=== PATIENT | female | born 2000 | race African-American/Black ===

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

== ENCOUNTER 2021-01-06 17:50 | Emergency (ER) | payer MEDICAID, OTHER ==
[~2021-01-06 17:50] MED LIST: Sodium Chloride 0.9% 1,000 ML BAG ONE
[2021-01-06] MEDS ORDERED: Metoclopramide HCl 10 MG/2 ML VIAL ONE (18:29)
[2021-01-06] MEDS ORDERED: Pantoprazole 40 MG VIAL ONE (18:29)
[2021-01-06] MEDS ORDERED: Ketorolac Tromethamine 30 MG/ML VIAL ONE (18:29)
[2021-01-06 18:44] LABS: #Basophils 0.1 thou/uL (0.0-0.2); #Monocytes 0.5 thou/uL (0.11-0.59); #Neutrophils 6.7 thou/uL (1.40-6.50); %Basophils 0.8 % (0.0-1.0); %Eosinophils 0.1 % (0.0-10.0); %Lymphocytes 21.5 % (28.0-48.0); %Monocytes 5.4 % (0.0-4.0); %Neutrophils 72.2 % (31.0-61.0); Hemoglobin 14.8 g/dL (12.0-16.0); Mean Corpuscular HGB CONC 33.8 g/dL (32.0-36.0); Mean Corpuscular Hemoglobin 30.6 pg (25.0-35.0); Mean Corpuscular Volume 90.7 fL (78.0-98.0); Mean Platelet Volume 8.3 fL (7.4-10.4); Platelet Count 412 thou/uL (130-400); RBC Distribution Width 10.2 % (11.5-14.5); Red Blood Cell (RBC) Count 4.84 mill/uL (4.00-5.20); White Blood Cell (WBC) Count 9.3 thou/uL (4.8-10.8)
[2021-01-06 18:53] LABS: BHCG - Serum Negative (NEGATIVE); Pregs Control Background? CLEAR/WHITE (CLR/WHITE); Pregs Control Bar Appear? YES (CONTROL BAR)
[2021-01-06 18:58] LABS: ALT (SGPT) 8 U/L (8-55); AST (SGOT) 10 U/L (5-30); Albumin 4.8 g/dL (3.5-5.0); Alkaline Phosphatase 74 U/L (40-100); Anion Gap 27 mmol/L (10-20); BUN (Urea Nitrogen) 26 mg/dL (8.4-21.0); Bilirubin, Total 0.8 mg/dL (0.2-1.2); CK (CPK) 20 U/L (29-168); CRP (Inflammatory) Less than 0.50 mg/dL (= or < 0.5); Calc. Creatinine Clearance 0 mL/min (70-130); Calcium 10.7 mg/dL (7.8-10.44); Carbon Dioxide 18 mmol/L (22-29); Chloride 94 mmol/L (98-107); Globulin 3.1 g/dL (2.4-3.5); Glucose 304 mg/dL (70-105); Potassium 3.5 mmol/L (3.5-5.1); Protein, Total 7.9 g/dL (6.0-8.3); Sodium 135 mmol/L (136-145)
[2021-01-06 19:12] LABS: Thyroid Stimulating Hormone 0.2778 uIU/mL (0.35-4.94)
== END 2021-01-06 20:38 | disposition home or self-care (01) ==
LOC: MADERS 17:50
DX: E10.43 Type 1 diabetes mellitus with diabetic autonomic (poly)neuropathy (principal); K31.84 Gastroparesis; E10.65 Type 1 diabetes mellitus with hyperglycemia; E46 Unspecified protein-calorie malnutrition
CPT/HCPCS: 36416; 74022; 80053; 82550; 83605; 84443; 84703; 85025; 86140; 96374; 96375; C9113; J1885; J2765; J7050

== ENCOUNTER 2021-04-12 03:57 | Emergency (ER) | payer OTHER ==
[2021-04-12] MEDS ORDERED: Dextrose 50% Abboject 50 ML SYRINGE ONE (04:15)
[2021-04-12] MEDS ORDERED: Ondansetron PF 4 MG/2 ML Vial ONE (04:20)
[2021-04-12 04:23] LABS: #Basophils 0.1 thou/uL (0.0-0.2); #Eosinphils 0.1 thou/uL (0.0-0.7); #Lymphocytes 2.5 thou/uL (1.20-3.40); #Monocytes 0.5 thou/uL (0.11-0.59); #Neutrophils 7.2 thou/uL (1.40-6.50); %Basophils 0.8 % (0.0-1.0); %Eosinophils 0.9 % (0.0-10.0); %Monocytes 4.8 % (0.0-4.0); %Neutrophils 69.6 % (31.0-61.0); Hemoglobin 15.4 g/dL (12.0-16.0); Mean Corpuscular HGB CONC 33.8 g/dL (32.0-36.0); Mean Corpuscular Hemoglobin 31.6 pg (25.0-35.0); Mean Corpuscular Volume 93.4 fL (78.0-98.0); Mean Platelet Volume 7.2 fL (7.4-10.4); Platelet Count 415 thou/uL (130-400); RBC Distribution Width 10.8 % (11.5-14.5); Red Blood Cell (RBC) Count 4.87 mill/uL (4.00-5.20); White Blood Cell (WBC) Count 10.4 thou/uL (4.8-10.8)
[2021-04-12 04:43] LABS: Anion Gap 17 mmol/L (10-20); BUN (Urea Nitrogen) 9 mg/dL (8.4-21.0); Calc. Creatinine Clearance 0 mL/min (70-130); Calcium 10.4 mg/dL (7.8-10.44); Chloride 99 mmol/L (98-107); Glucose 81 mg/dL (70-105); Potassium 4.6 mmol/L (3.5-5.1); Sodium 137 mmol/L (136-145)
[2021-04-12 04:45] LABS: Carbon Dioxide 26 mmol/L (22-29)
[2021-04-12] MEDS ORDERED: Acetaminophen 325 MG TAB ONE (05:34)
== END 2021-04-12 07:12 | disposition home or self-care (01) ==
LOC: MADERS 03:57
DX: E10.43 Type 1 diabetes mellitus with diabetic autonomic (poly)neuropathy (principal); K31.84 Gastroparesis; E10.649 Type 1 diabetes mellitus with hypoglycemia without coma; Z79.4 Long term (current) use of insulin
CPT/HCPCS: 36415; 36416; 80048; 85025; 96374; 96375; J2405

== ENCOUNTER 2021-12-27 11:19 | Emergency (ER) | payer OTHER ==
[2021-12-27] MEDS ORDERED: Dextrose 50% Abboject 50 ML SYRINGE ONE (11:43)
[2021-12-27] MEDS ORDERED: Metoclopramide HCl 10 MG/2 ML VIAL ONE (12:02)
[2021-12-27] MEDS ORDERED: Dextrose 10% in Water 250 ML ONE (12:02)
[2021-12-27] MEDS ORDERED: Dicyclomine 20 MG/2 ML VIAL ONE (12:26)
[2021-12-27 12:32] LABS: #Basophils 0.1 thou/uL (0.0-0.2); #Lymphocytes 1.2 thou/uL (1.20-3.40); #Monocytes 0.7 thou/uL (0.11-0.59); #Neutrophils 12.2 thou/uL (1.40-6.50); %Basophils 0.6 % (0.0-1.0); %Lymphocytes 8.4 % (28.0-48.0); %Monocytes 5.2 % (0.0-4.0); %Neutrophils 85.8 % (31.0-61.0); Hemoglobin 14.3 g/dL (12.0-16.0); Mean Corpuscular HGB CONC 33.5 g/dL (32.0-36.0); Mean Corpuscular Hemoglobin 31.4 pg (25.0-35.0); Mean Corpuscular Volume 93.7 fL (78.0-98.0); Mean Platelet Volume 9.4 fL (7.4-10.4); Platelet Count 326 thou/uL (130-400); RBC Distribution Width 10.9 % (11.5-14.5); Red Blood Cell (RBC) Count 4.56 mill/uL (4.00-5.20); White Blood Cell (WBC) Count 14.2 thou/uL (4.8-10.8)
[2021-12-27 12:44] LABS: BHCG - Serum Negative (NEGATIVE); Pregs Control Background? CLEAR/WHITE (CLR/WHITE); Pregs Control Bar Appear? YES (CONTROL BAR)
[2021-12-27 12:50] LABS: ALT (SGPT) 10 U/L (8-55); AST (SGOT) 20 U/L (5-34); Albumin 4.9 g/dL (3.5-5.0); Alkaline Phosphatase 90 U/L (40-100); Anion Gap 20 mmol/L (10-20); BUN (Urea Nitrogen) 18 mg/dL (7.0-18.7); Bilirubin, Total 0.5 mg/dL (0.2-1.2); Calc. Creatinine Clearance 0 mL/min (70-130); Calcium 10.6 mg/dL (7.8-10.44); Carbon Dioxide 24 mmol/L (22-29); Chloride 94 mmol/L (98-107); Estimated GFR 113; Globulin 3.7 g/dL (2.4-3.5); Glucose 118 mg/dL (70-105); Lipase 14 U/L (8-78); Potassium 3.5 mmol/L (3.5-5.1); Protein, Total 8.6 g/dL (6.0-8.3); Sodium 134 mmol/L (136-145)
== END 2021-12-27 13:20 | disposition home or self-care (01) ==
LOC: MADERS 11:19
DX: E10.43 Type 1 diabetes mellitus with diabetic autonomic (poly)neuropathy (principal); K31.84 Gastroparesis; E10.649 Type 1 diabetes mellitus with hypoglycemia without coma; Z79.899 Other long term (current) drug therapy
CPT/HCPCS: 36416; 80053; 83690; 84703; 85025; 96365; 96372; 96375; 36415-59; J2765; J7999

== ENCOUNTER 2022-03-26 13:59 | Outpatient (CLI) | payer OTHER | END 2022-03-26 14:00 | disposition home or self-care (01) | LOC: MADLAB 13:59 | PROVIDERS: ATTEND Internal Medicine Gastroenterology | DX: R07.81 Pleurodynia (principal) | CPT/HCPCS: 71046 ==

== ENCOUNTER 2023-08-02 20:53 | Emergency (ER) | payer OTHER, SELFPAY ==
[2023-08-02] MEDS ORDERED: Ketorolac Tromethamine 30 MG (1 mL) VIAL ONE (21:18)
[2023-08-02] MEDS ORDERED: Ondansetron PF 4 MG/2 ML Vial ONE (21:18)
[2023-08-02] MEDS ORDERED: Morphine 4 MG/ML VIAL ONE (21:19)
[2023-08-02] MEDS ORDERED: Sodium Chloride 0.9% 2,000 ML ONE (21:19)
[2023-08-02 22:02] LABS: Band 6 % (5-11); Eosinophils 1 % (0-10); Hematocrit 37.5 % (36.0-47.0); Hemoglobin 12.1 g/dL (12.0-16.0); Lymphocytes 16 % (21-51); MDiff Complete? YES; Mean Corpuscular HGB CONC 32.2 g/dL (32.0-36.0); Mean Corpuscular Hemoglobin 30.5 pg (27.0-31.0); Mean Corpuscular Volume 94.6 fl (78.0-98.0); Mean Platelet Volume 8.6 fL (7.4-10.4); Monocytes 19 % (0-10); Neutrophil 58 % (42-75); Platelet Adequacy Comment Appears Decreased; Platelet Count 105 10x3/uL (130-400); Red Blood Cell (RBC) Count 3.97 mill/uL (4.20-5.40); Toxic Granulation SLIGHT; Vacuoles SLIGHT; White Blood Cell (WBC) Count 7.9 10x3/uL (4.8-10.8)
[2023-08-02 22:06] LABS: ALT (SGPT) 24 U/L (8-55); AST (SGOT) 29 U/L (5-34); Albumin 3.4 g/dL (3.5-5.0); Alkaline Phosphatase 288 U/L (40-110); Anion Gap 28 mmol/L (10-20); BUN (Urea Nitrogen) 66 mg/dL (7.0-18.7); Bilirubin, Total 1.1 mg/dL (0.2-1.2); Calc. Creatinine Clearance 0 mL/min (70-130); Calcium 8.1 mg/dL (7.8-10.44); Carbon Dioxide 15 mmol/L (22-29); Chloride 89 mmol/L (98-107); Estimated GFR 18; Globulin 4.2 g/dL (2.4-3.5); Glucose 115 mg/dL (70-105); Potassium 3.6 mmol/L (3.5-5.1); Protein, Total 7.6 g/dL (6.0-8.3); Sodium 128 mmol/L (136-145)
[2023-08-02 22:18] LABS: BHCG - Serum Negative (NEGATIVE); Pregs Control Background? CLEAR/WHITE (CLR/WHITE); Pregs Control Bar Appear? YES (CONTROL BAR)
[2023-08-02 23:10] LABS: Base Excess-Venous -6.7 mmol/L (-2.0 to 3.0); Bicarbonate (HCO3v) 17.7 mmol/L (22.0-28.0); CO2 Tension (PvCO2) 31.8 mmHg (42.0-51.0); Calcium, Ionized 0.79 mmol/L (1.15-1.33); Chloride 99 mmol/L (98-107); Potassium 3.4 mmol/L (3.5-5.1); Sodium 126 mmol/L (138-145); T. Carbon Dioxide 18.7 mmol/L (22.0-28.0)
[2023-08-02] MEDS ORDERED: Sodium Chloride 0.9% 1,000 ML ONE (23:39)
[2023-08-02] MEDS ORDERED: Morphine 2 MG/ML VIAL ONE (23:39)
[2023-08-03] MEDS ORDERED: Lorazepam 2 MG/ML VIAL ONE (00:25)
[2023-08-03] MEDS ORDERED: Potassium Chloride 20 MEQ (100 mL) BAG ONE (00:26)
[2023-08-03] MEDS ORDERED: Sodium Chloride 0.9% 1,000 ML ONE (00:26)
== END 2023-08-03 01:48 | disposition short-term general hospital (02) ==
LOC: MADERS 20:53
DX: N17.9 Acute kidney failure, unspecified (principal); E86.0 Dehydration; E10.9 Type 1 diabetes mellitus without complications; F17.290 Nicotine dependence, other tobacco product, uncomplicated
CPT/HCPCS: 74176; 80053; 82010; 82330; 82550; 82803; 83690; 84703; 85025; 93005; 96361; 96374; 96375; 96376; J1885; J2060; J2270; J2272; J2405; J3480; J7050

== ENCOUNTER 2023-10-22 19:32 | Emergency (ER) | payer SELFPAY ==
[~2023-10-22 19:32] MED LIST changes: +Iopamidol 370 76% 100 ML VIAL ONE; -Sodium Chloride 0.9% 1,000 ML BAG ONE
[2023-10-22 20:18] LABS: #Basophils 0.1 thou/uL (0.0-0.2); #Eosinphils 0.1 thou/uL (0.0-0.7); #Lymphocytes 2.2 thou/uL (1.20-3.40); #Monocytes 0.4 thou/uL (0.11-0.59); %Basophils 0.8 % (0.0-1.0); %Eosinophils 0.7 % (0.0-10.0); %Monocytes 4.7 % (0.0-10.0); %Neutrophils 68.8 % (42.0-75.0); Hematocrit 44.2 % (36.0-47.0); Hemoglobin 13.9 g/dL (12.0-16.0); Mean Corpuscular HGB CONC 31.3 g/dL (32.0-36.0); Mean Corpuscular Volume 95.6 fl (78.0-98.0); Mean Platelet Volume 7.2 fL (7.4-10.4); Platelet Count 357 10x3/uL (130-400); RBC Distribution Width 12.6 % (11.5-14.5); Red Blood Cell (RBC) Count 4.62 mill/uL (4.20-5.40); White Blood Cell (WBC) Count 8.7 10x3/uL (4.8-10.8)
[2023-10-22] MEDS ORDERED: Meropenem 1 GM VIAL ONE (20:27)
[2023-10-22] MEDS ORDERED: Morphine 4 MG/ML VIAL ONE (20:27)
[2023-10-22] MEDS ORDERED: Promethazine HCl 25 MG/ML VIAL ONE (20:27)
[2023-10-22] MEDS ORDERED: Lactated Ringer's 2,000 ML ONE (20:28)
[2023-10-22] MEDS ORDERED: Vancomycin 1 GM VIAL ONE (20:28)
[2023-10-22] MEDS ORDERED: Sodium Chloride 0.9% 100 ML ONE (20:28)
[2023-10-22] MEDS ORDERED: Sodium Chloride 0.9% 250 ML 250 ML ONE (20:28)
[2023-10-22 20:36] LABS: Base Excess-Venous -1.9 mmol/L (-2.0 to 3.0); Bicarbonate (HCO3v) 21.3 mmol/L (22.0-28.0); CO2 Tension (PvCO2) 31.7 mmHg (42.0-51.0); Calcium, Ionized 1.14 mmol/L (1.15-1.33); Chloride 88 mmol/L (98-107); Hemoglobin - Calc 14.9 g/dL (12.0-16.0); Potassium 4.5 mmol/L (3.5-5.1); Sodium 122 mmol/L (138-145); T. Carbon Dioxide 22.3 mmol/L (22.0-28.0); vO2 Saturation-calc 90.9 % (60.0-85.0)
[2023-10-22 20:38] LABS: ALT (SGPT) 23 U/L (8-55); AST (SGOT) 18 U/L (5-34); Albumin 4.4 g/dL (3.5-5.0); Alkaline Phosphatase 189 U/L (40-110); Anion Gap 21 mmol/L (10-20); BUN (Urea Nitrogen) 26 mg/dL (7.0-18.7); Bilirubin, Total 0.3 mg/dL (0.2-1.2); Calc. Creatinine Clearance 0 mL/min (70-130); Calcium 9.9 mg/dL (7.8-10.44); Carbon Dioxide 18 mmol/L (22-29); Chloride 88 mmol/L (98-107); Estimated GFR 46; Globulin 5.1 g/dL (2.4-3.5); Lipase 89 U/L (8-78); Potassium 4.8 mmol/L (3.5-5.1); Protein, Total 9.5 g/dL (6.0-8.3); Sodium 122 mmol/L (136-145)
[2023-10-22 20:40] LABS: Glucose 744 mg/dL (70-105)
[2023-10-22 20:52] LABS: BHCG - Serum Negative (NEGATIVE); Pregs Control Background? CLEAR/WHITE (CLR/WHITE); Pregs Control Bar Appear? YES (CONTROL BAR)
[2023-10-22 21:34] LABS: Bacteria/HPF Rare-Few HPF (None Seen); Bilirubin Negative (Negative); Blood, Urine Negative (Negative); CAUTI Indications for Culture < 2yrs of age; Clarity Hazy (Clear); Glucose, Urine (Dipstick) >=1000 mg/dL (Negative); Ketone, Urine Negative (Negative); Leukocyte Trace (Negative); Nitrite Negative (Negative); Protein, Urine (Dipstick) Negative (Neg-Trace); RBC/HPF 0-3 HPF (0-3); Specific Gravity, Urine 1.015 (1.005-1.030); Urobilinogen 0.2 mg/dL (Less than 2); WBC/HPF 21-50 HPF (0-3)
[2023-10-22 21:35] LABS: Pregnancy Test - Urine (BHCG) Negative (Negative); Pregu Control Background? CLEAR/WHITE (CLR/WHITE); Pregu Control Bar Appear? YES (CONTROL BAR); Specific Gravity 1.015 (1.002-1.036)
[2023-10-22 21:36] LABS: Urine Culture Reflex Yes Yes
[2023-10-22 22:08] LABS: Influenza A by NAA Not Detected (NotDetected); Influenza B by NAA Not Detected (NotDetected); SARS-CoV-2 NAA Rapid Test Not Detected (NotDetected)
[2023-10-22] MEDS ORDERED: Insulin Regular 300 UNITS/3 ML VIAL ONE (22:09)
[2023-10-22 23:12] LABS: Lactic Acid 1.2 mmol/L (0.5-2.2)
[2023-10-22 23:15] LABS: Anion Gap 16 mmol/L (10-20); BUN (Urea Nitrogen) 23 mg/dL (7.0-18.7); Calc. Creatinine Clearance 0 mL/min (70-130); Calcium 9.2 mg/dL (7.8-10.44); Carbon Dioxide 22 mmol/L (22-29); Chloride 94 mmol/L (98-107); Estimated GFR 67; Glucose 390 mg/dL (70-105); Potassium 4.1 mmol/L (3.5-5.1); Sodium 128 mmol/L (136-145)
[2023-10-23] MEDS ORDERED: Metoprolol Tartrate 50 MG TAB ONE (00:01)
== END 2023-10-23 01:03 | disposition home or self-care (01) ==
LOC: MADERS 19:32
DX: N10 Acute pyelonephritis (principal); E10.65 Type 1 diabetes mellitus with hyperglycemia; N17.9 Acute kidney failure, unspecified; F17.290 Nicotine dependence, other tobacco product, uncomplicated
CPT/HCPCS: 74178; 80053; 81001; 81025; 82010; 82330; 82803; 83605; 83690; 84703; 85025; 87040; 87086; 94760; 96361; 96365; 96366; 96367; 96375; J1815; J2185; J2272; J2550; J3370; J7050; J7120; Q9967

== ENCOUNTER 2023-10-29 07:03 | Emergency (ER) | payer OTHER ==
[2023-10-29] MEDS ORDERED: Ketorolac Tromethamine 30 MG (1 mL) VIAL ONE (08:28)
[2023-10-29] MEDS ORDERED: Sodium Chloride 0.9% 1,000 ML ONE ×2 (08:29→09:12)
[2023-10-29 08:44] LABS: Anion Gap 21 mmol/L (10-20); BUN (Urea Nitrogen) 18 mg/dL (7.0-18.7); Calc. Creatinine Clearance 0 mL/min (70-130); Carbon Dioxide 17 mmol/L (22-29); Chloride 95 mmol/L (98-107); Potassium 4.9 mmol/L (3.5-5.1); Sodium 128 mmol/L (136-145)
[2023-10-29 08:53] LABS: Albumin 4.3 g/dL (3.5-5.0); Bilirubin, Total 0.2 mg/dL (0.2-1.2); Calcium 10.3 mg/dL (7.6-10.4); Globulin 5.5 g/dL (2.4-3.5); Glucose 564 mg/dL (70-105); Protein, Total 9.8 g/dL (6.0-8.3)
[2023-10-29 08:54] LABS: ALT (SGPT) 17 U/L (8-55); AST (SGOT) 16 U/L (5-34); Alkaline Phosphatase 186 U/L (40-110)
[2023-10-29 09:05] LABS: #Basophils 0.1 thou/uL (0.0-0.2); #Eosinphils 0.1 thou/uL (0.0-0.7); #Lymphocytes 1.7 thou/uL (1.20-3.40); #Monocytes 0.5 thou/uL (0.11-0.59); #Neutrophils 9.2 thou/uL (1.40-6.50); %Basophils 0.7 % (0.0-1.0); %Lymphocytes 14.6 % (21.0-51.0); %Monocytes 4.5 % (0.0-10.0); %Neutrophils 79.2 % (42.0-75.0); Hematocrit 43.4 % (36.0-47.0); Hemoglobin 13.7 g/dL (12.0-16.0); Mean Corpuscular HGB CONC 31.6 g/dL (32.0-36.0); Mean Corpuscular Hemoglobin 30.2 pg (27.0-31.0); Mean Corpuscular Volume 95.5 fl (78.0-98.0); Mean Platelet Volume 7.7 fL (7.4-10.4); Platelet Count 339 10x3/uL (130-400); RBC Distribution Width 12.3 % (11.5-14.5); Red Blood Cell (RBC) Count 4.55 mill/uL (4.20-5.40); White Blood Cell (WBC) Count 11.6 10x3/uL (4.8-10.8)
[2023-10-29 09:09] LABS: Estimated GFR 52
[2023-10-29] MEDS ORDERED: Insulin Regular, Human 100 UNIT/ML 10 ML VIAL ONE (09:13)
[2023-10-29 09:43] LABS: Bicarbonate (HCO3v) 20.9 mmol/L (22.0-28.0); CO2 Tension (PvCO2) 36.5 mmHg (42.0-51.0); Calcium, Ionized 1.13 mmol/L (1.15-1.33); Chloride 102 mmol/L (98-107); Hemoglobin - Calc 11.8 g/dL (12.0-16.0); Potassium 4.3 mmol/L (3.5-5.1); Sodium 132 mmol/L (138-145); vO2 Saturation-calc 98.7 % (60.0-85.0)
[2023-10-29 09:51] LABS: Bilirubin Negative (Negative); Blood, Urine Trace (Negative); Clarity Clear (Clear); Glucose, Urine (Dipstick) >=1000 mg/dL (Negative); Ketone, Urine Trace mg/dL (Negative); Leukocyte Small (Negative); Nitrite Negative (Negative); Protein, Urine (Dipstick) Negative (Neg-Trace); Urobilinogen 0.2 mg/dL (Less than 2)
[2023-10-29] MEDS ORDERED: NS 0.9% w/ 20 MEQ KCL 1,000 ML ONE (09:53)
[2023-10-29] MEDS ORDERED: Ondansetron PF 4 MG/2 ML Vial ONE (09:54)
[2023-10-29 09:55] LABS: Pregnancy Test - Urine (BHCG) Negative (Negative); Pregu Control Background? CLEAR/WHITE (CLR/WHITE); Pregu Control Bar Appear? YES (CONTROL BAR)
[2023-10-29 10:10] LABS: Bacteria/HPF Rare-Few HPF (None Seen); CAUTI Indications for Culture Pelvic or flank pain
[2023-10-29 10:12] LABS: Urine Culture Reflex Yes Yes
[2023-10-29 10:18] LABS: Amphetamine Not Detected (NotDetected); Barbiturates Screen Not Detected (NotDetected); Benzodiazepine Screen Not Detected (NotDetected); Cocaine Metabolite Screen Not Detected (NotDetected); Methadone Not Detected (NotDetected); Methamphetamine Not Detected (NotDetected); Opiate Screen Detected (NotDetected); Oxycodone Screen Not Detected (NotDetected); Phencyclidine (PCP) Not Detected (NotDetected); THC/Cannabinoid Screen Detected (NotDetected); Tricyclic Screen Not Detected (NotDetected)
[2023-10-29] MEDS ORDERED: INSULIN REGULAR IN 0.9 % NACL 100 ML ONE (10:29)
[2023-10-29] MEDS ORDERED: Sodium Chloride 0.9% 100 ML ONE (10:57)
[2023-10-29] MEDS ORDERED: cefTRIAXone (ROCEPHIN) 2 GM VIAL ONE (10:57)
[2023-10-29] MEDS ORDERED: Dextrose 50% Abboject 50 ML SYRINGE ONE (11:24)
[2023-10-29] MEDS ORDERED: Dextrose 5 % And 0.9 % NaCl 1,000 ML ONE (11:24)
[2023-10-29 11:37] LABS: Lactic Acid 2.7 mmol/L (0.5-2.2)
[2023-10-29] MEDS ORDERED: traMADol HCl 50 MG TAB ONE (11:41)
== END 2023-10-29 11:51 | disposition short-term general hospital (02) ==
LOC: MADERS 07:03
DX: E10.10 Type 1 diabetes mellitus with ketoacidosis without coma (principal); E10.22 Type 1 diabetes mellitus with diabetic chronic kidney disease; N18.9 Chronic kidney disease, unspecified; N39.0 Urinary tract infection, site not specified; E10.43 Type 1 diabetes mellitus with diabetic autonomic (poly)neuropathy; K31.84 Gastroparesis; F17.290 Nicotine dependence, other tobacco product, uncomplicated; Z79.4 Long term (current) use of insulin; Z79.899 Other long term (current) drug therapy
CPT/HCPCS: 36416; 71045; 74176; 80053; 80306; 81001; 81025; 82010; 82330; 82803; 83605; 85025; 87086; 93005; 96374; 96375; 96376; J0696; J1815; J1885; J2405; J3480; J7030; J7042; J7999

== ENCOUNTER 2023-11-30 12:34 | Emergency (ER) | payer OTHER, SELFPAY ==
[2023-11-30 14:02] LABS: #Basophils 0.1 thou/uL (0.0-0.2); #Eosinphils 0.1 thou/uL (0.0-0.7); #Lymphocytes 2.2 thou/uL (1.20-3.40); #Monocytes 0.6 thou/uL (0.11-0.59); #Neutrophils 6.3 thou/uL (1.40-6.50); %Basophils 0.9 % (0.0-1.0); %Eosinophils 0.7 % (0.0-10.0); %Lymphocytes 23.7 % (21.0-51.0); %Monocytes 6.3 % (0.0-10.0); %Neutrophils 68.4 % (42.0-75.0); Hematocrit 41.9 % (36.0-47.0); Hemoglobin 13.4 g/dL (12.0-16.0); Mean Corpuscular Hemoglobin 29.7 pg (27.0-31.0); Mean Corpuscular Volume 92.7 fl (78.0-98.0); Mean Platelet Volume 7.1 fL (7.4-10.4); Platelet Count 336 10x3/uL (130-400); RBC Distribution Width 11.2 % (11.5-14.5); Red Blood Cell (RBC) Count 4.52 mill/uL (4.20-5.40); White Blood Cell (WBC) Count 9.2 10x3/uL (4.8-10.8)
[2023-11-30 14:08] LABS: Prothrombin Time 13.6 sec (12.0-14.7)
[2023-11-30] MEDS ORDERED: Ketorolac Tromethamine 30 MG (1 mL) VIAL ONE (14:08)
[2023-11-30] MEDS ORDERED: Promethazine HCl 25 MG/ML VIAL ONE (14:08)
[2023-11-30] MEDS ORDERED: Morphine 4 MG/ML VIAL ONE ×3 (14:08→20:45)
[2023-11-30] MEDS ORDERED: Lactated Ringer's 2,000 ML ONE (14:08)
[2023-11-30 14:10] LABS: PTT 27.8 sec (22.9-36.1)
[2023-11-30 14:17] LABS: ALT (SGPT) 14 U/L (8-55); AST (SGOT) 18 U/L (5-34); Albumin 4.4 g/dL (3.5-5.0); Alkaline Phosphatase 153 U/L (40-110); Anion Gap 20 mmol/L (10-20); BUN (Urea Nitrogen) 15 mg/dL (7.0-18.7); Bilirubin, Total 0.5 mg/dL (0.2-1.2); Calc. Creatinine Clearance 0 mL/min (70-130); Calcium 10.1 mg/dL (7.8-10.44); Carbon Dioxide 19 mmol/L (22-29); Chloride 100 mmol/L (98-107); Estimated GFR 73; Globulin 5.1 g/dL (2.4-3.5); Glucose 203 mg/dL (70-105); Lipase 14 U/L (8-78); Magnesium 1.5 mg/dL (1.6-2.6); Potassium 3.9 mmol/L (3.5-5.1); Protein, Total 9.5 g/dL (6.0-8.3); Sodium 135 mmol/L (136-145)
[2023-11-30 14:22] LABS: Base Excess-Venous -0.7 mmol/L (-2.0 to 3.0); Bicarbonate (HCO3v) 20.9 mmol/L (22.0-28.0); CO2 Tension (PvCO2) 26.6 mmHg (42.0-51.0); Calcium, Ionized 1.09 mmol/L (1.15-1.33); Chloride 104 mmol/L (98-107); Hemoglobin - Calc 15.3 g/dL (12.0-16.0); Potassium 4.1 mmol/L (3.5-5.1); Sodium 135 mmol/L (138-145); T. Carbon Dioxide 21.7 mmol/L (22.0-28.0); vO2 Saturation-calc 98.9 % (60.0-85.0)
[2023-11-30 14:23] LABS: Troponin I Less than 0.010 ng/mL (< 0.028)
[2023-11-30 14:44] LABS: BHCG - Serum Negative (NEGATIVE); Pregs Control Background? CLEAR/WHITE (CLR/WHITE); Pregs Control Bar Appear? YES (CONTROL BAR)
[2023-11-30] MEDS ORDERED: Magnesium 2 GM/50 ML BAG (IN WATER) ONE (15:03)
[2023-11-30] MEDS ORDERED: Prochlorperazine 10 MG/2 ML VIAL ONE (15:12)
[2023-11-30] MEDS ORDERED: diphenhydrAMINE 50 MG/ML VIAL ONE (15:12)
[2023-11-30 16:13] LABS: SARS-CoV-2 E Target Negative; SARS-CoV-2 N2 Target Negative; SARS-CoV-2 NAA Rapid Test Not Detected (NotDetected); SARS-CoV-2 RdRP gene Negative
[2023-11-30 17:17] LABS: Anion Gap 14 mmol/L (10-20); BUN (Urea Nitrogen) 14 mg/dL (7.0-18.7); Calc. Creatinine Clearance 0 mL/min (70-130); Calcium 8.7 mg/dL (7.8-10.44); Carbon Dioxide 20 mmol/L (22-29); Chloride 104 mmol/L (98-107); Estimated GFR 101; Glucose 128 mg/dL (70-105); Potassium 3.1 mmol/L (3.5-5.1); Sodium 135 mmol/L (136-145)
[2023-11-30] MEDS ORDERED: Potassium Chloride 20 MEQ TAB ONE (17:48)
[2023-11-30 18:55] LABS: Bilirubin Negative (Negative); Blood, Urine Negative (Negative); Clarity Slightly Cloudy (Clear); Glucose, Urine (Dipstick) 100 mg/dL (Negative); Ketone, Urine Trace mg/dL (Negative); Leukocyte Small (Negative); Nitrite Negative (Negative); Protein, Urine (Dipstick) Negative (Neg-Trace); Urobilinogen 0.2 mg/dL (Less than 2); pH, Urine 6.5 (5.0-9.0)
[2023-11-30 18:59] LABS: Pregnancy Test - Urine (BHCG) Negative (Negative); Pregu Control Background? CLEAR/WHITE (CLR/WHITE); Pregu Control Bar Appear? YES (CONTROL BAR)
[2023-11-30 19:01] LABS: Bacteria/HPF 2+ HPF (None Seen); CAUTI Indications for Culture Dysuria,urgency,freq; RBC/HPF 0-3 HPF (0-3)
[2023-11-30 19:03] LABS: Urine Culture Reflex Yes Yes
[2023-11-30] MEDS ORDERED: LevoFLOXacin 750 mg/D5W 150 ml Premix Bag ONE (19:46)
[2023-11-30] MEDS ORDERED: Ondansetron PF 4 MG/2 ML Vial ONE (21:25)
== END 2023-11-30 21:29 | disposition home or self-care (01) ==
LOC: MADERS 12:34
DX: A41.9 Sepsis, unspecified organism (principal); N10 Acute pyelonephritis; E10.10 Type 1 diabetes mellitus with ketoacidosis without coma; E87.6 Hypokalemia; E83.42 Hypomagnesemia; R94.6 Abnormal results of thyroid function studies; F17.290 Nicotine dependence, other tobacco product, uncomplicated
CPT/HCPCS: 36416; 71045; 74177; 80053; 81001; 81025; 82010; 82330; 82435; 82803; 83605; 83690; 83735; 83880; 84132; 84295; 84439; 84443; 84484; 84703; 85014; 85025; 85610; 85730; 87040; 87086; 93005; 94760; 96365; 96367; 96375; 96376; J0780; J1200; J1885; J1956; J2272; J2405; J2550; J3475; J7120; U0002

== ENCOUNTER 2023-12-22 11:11 | Emergency (ER) | payer SELFPAY ==
[2023-12-22] MEDS ORDERED: Sodium Chloride 0.9% 1,000 ML ONE (12:55)
[2023-12-22 13:08] LABS: #Basophils 0.1 thou/uL (0.0-0.2); #Eosinphils 0.1 thou/uL (0.0-0.7); #Lymphocytes 1.8 thou/uL (1.20-3.40); #Monocytes 0.7 thou/uL (0.11-0.59); #Neutrophils 5.1 thou/uL (1.40-6.50); %Basophils 0.8 % (0.0-1.0); %Eosinophils 0.9 % (0.0-10.0); %Lymphocytes 23.4 % (21.0-51.0); %Monocytes 8.7 % (0.0-10.0); %Neutrophils 66.2 % (42.0-75.0); Hematocrit 40.6 % (36.0-47.0); Hemoglobin 13.3 g/dL (12.0-16.0); Mean Corpuscular HGB CONC 32.9 g/dL (32.0-36.0); Mean Corpuscular Volume 94.4 fl (78.0-98.0); Mean Platelet Volume 7.6 fL (7.4-10.4); Platelet Count 442 10x3/uL (130-400); RBC Distribution Width 11.7 % (11.5-14.5); White Blood Cell (WBC) Count 7.6 10x3/uL (4.8-10.8)
[2023-12-22 13:16] LABS: BHCG - Serum Negative (NEGATIVE); Pregs Control Background? CLEAR/WHITE (CLR/WHITE); Pregs Control Bar Appear? YES (CONTROL BAR)
[2023-12-22 13:22] LABS: ALT (SGPT) 16 U/L (8-55); AST (SGOT) 15 U/L (5-34); Albumin 4.2 g/dL (3.5-5.0); Alkaline Phosphatase 153 U/L (40-110); Anion Gap 19 mmol/L (10-20); BUN (Urea Nitrogen) 24 mg/dL (7.0-18.7); Bilirubin, Total 0.5 mg/dL (0.2-1.2); Calc. Creatinine Clearance 0 mL/min (70-130); Calcium 10.6 mg/dL (7.8-10.44); Carbon Dioxide 19 mmol/L (22-29); Chloride 99 mmol/L (98-107); Estimated GFR 71; Globulin 4.6 g/dL (2.4-3.5); Glucose 253 mg/dL (70-105); Lipase 10 U/L (8-78); Protein, Total 8.8 g/dL (6.0-8.3); Sodium 133 mmol/L (136-145)
[2023-12-22] MEDS ORDERED: diphenhydrAMINE 50 MG/ML VIAL ONE (13:24)
[2023-12-22] MEDS ORDERED: Ketorolac Tromethamine 30 MG (1 mL) VIAL ONE ×2 (13:25→16:33)
[2023-12-22] MEDS ORDERED: Haloperidol Lactate 5 MG/ML VIAL ONE (13:25)
[2023-12-22] MEDS ORDERED: Sodium Chloride 0.9% 50 ML ONE (13:25)
[2023-12-22] MEDS ORDERED: Sodium Chloride 0.9% 100 ML ONE ×2 (13:25→15:17)
[2023-12-22] MEDS ORDERED: Metoclopramide HCl 10 MG (2 mL) VIAL ONE (13:25)
[2023-12-22 14:59] LABS: Bilirubin Small (Negative); Blood, Urine Small (Negative); Clarity Slightly Cloudy (Clear); Glucose, Urine (Dipstick) 500 mg/dL (Negative); Ketone, Urine 40 mg/dL (Negative); Leukocyte Trace (Negative); Nitrite Negative (Negative); Protein, Urine (Dipstick) 100 mg/dL (Neg-Trace); Urobilinogen 0.2 mg/dL (Less than 2); pH, Urine 5.5 (5.0-9.0)
[2023-12-22 15:05] LABS: Bacteria/HPF 1+ HPF (None Seen); CAUTI Indications for Culture Pelvic or flank pain; WBC/HPF 21-50 HPF (0-3)
[2023-12-22 15:06] LABS: Urine Culture Reflex Yes Yes
[2023-12-22] MEDS ORDERED: cefTRIAXone (ROCEPHIN) 1 GM VIAL ONE (15:17)
[2023-12-22] MEDS ORDERED: Sodium Chloride 0.9% 500 ML ONE (15:50)
== END 2023-12-22 16:54 | disposition home or self-care (01) ==
LOC: MADERS 11:11
DX: N10 Acute pyelonephritis (principal); Z55.6 Problems related to health literacy; E10.9 Type 1 diabetes mellitus without complications; Z79.4 Long term (current) use of insulin
CPT/HCPCS: 36415; 74176; 80053; 81001; 83605; 83690; 84703; 85025; 87086; 93005; 96361; 96365; 96367; 96372; 96375; 96376; J0696; J1200; J1630; J1885; J2765; J7030

== ENCOUNTER 2024-01-02 18:24 | Emergency (ER) | payer SELFPAY ==
[2024-01-02] MEDS ORDERED: Morphine 4 MG/ML VIAL ONE ×2 (18:43→20:27)
[2024-01-02] MEDS ORDERED: Sodium Chloride 0.9% 1,000 ML ONE ×2 (18:44→20:03)
[2024-01-02] MEDS ORDERED: Insulin Regular, Human 100 UNIT/ML 10 ML VIAL ONE (18:44)
[2024-01-02] MEDS ORDERED: Promethazine HCl 25 MG/ML VIAL ONE (18:44)
[2024-01-02 19:25] LABS: #Basophils 0.1 thou/uL (0.0-0.2); #Lymphocytes 1.8 thou/uL (1.20-3.40); #Monocytes 0.6 thou/uL (0.11-0.59); #Neutrophils 10.7 thou/uL (1.40-6.50); %Basophils 0.4 % (0.0-1.0); %Lymphocytes 13.9 % (21.0-51.0); %Monocytes 4.8 % (0.0-10.0); %Neutrophils 80.7 % (42.0-75.0); Hematocrit 40.6 % (36.0-47.0); Hemoglobin 13.7 g/dL (12.0-16.0); Mean Corpuscular HGB CONC 33.7 g/dL (32.0-36.0); Mean Corpuscular Hemoglobin 31.5 pg (27.0-31.0); Mean Corpuscular Volume 93.6 fl (78.0-98.0); Mean Platelet Volume 8.1 fL (7.4-10.4); Platelet Count 441 10x3/uL (130-400); RBC Distribution Width 11.9 % (11.5-14.5); Red Blood Cell (RBC) Count 4.34 mill/uL (4.20-5.40); White Blood Cell (WBC) Count 13.2 10x3/uL (4.8-10.8)
[2024-01-02 19:33] LABS: Base Excess-Venous -9.1 mmol/L (-2.0 to 3.0); Bicarbonate (HCO3v) 14.5 mmol/L (22.0-28.0); CO2 Tension (PvCO2) 25.8 mmHg (42.0-51.0); Calcium, Ionized 1.08 mmol/L (1.15-1.33); Chloride 102 mmol/L (98-107); Hemoglobin - Calc 15.2 g/dL (12.0-16.0); Potassium 4.2 mmol/L (3.5-5.1); Sodium 130 mmol/L (138-145); T. Carbon Dioxide 15.3 mmol/L (22.0-28.0); vO2 Saturation-calc 87.1 % (60.0-85.0)
[2024-01-02 19:34] LABS: Anion Gap 32 mmol/L (10-20); BUN (Urea Nitrogen) 30 mg/dL (7.0-18.7); Calc. Creatinine Clearance 0 mL/min (70-130); Calcium 10.3 mg/dL (7.8-10.44); Carbon Dioxide 11 mmol/L (22-29); Chloride 96 mmol/L (98-107); Estimated GFR 50; Glucose 350 mg/dL (70-105); Potassium 4.2 mmol/L (3.5-5.1)
[2024-01-02 19:36] LABS: Sodium 135 mmol/L (136-145)
[2024-01-02 20:35] LABS: Bilirubin Small (Negative); Blood, Urine Trace (Negative); Glucose, Urine (Dipstick) 500 mg/dL (Negative); Ketone, Urine 80 mg/dL (Negative); Leukocyte Negative (Negative); Nitrite Negative (Negative); Protein, Urine (Dipstick) 100 mg/dL (Neg-Trace); Urobilinogen 0.2 mg/dL (Less than 2); pH, Urine 5.5 (5.0-9.0)
[2024-01-02 20:36] LABS: Pregnancy Test - Urine (BHCG) Negative (Negative); Pregu Control Background? CLEAR/WHITE (CLR/WHITE); Pregu Control Bar Appear? YES (CONTROL BAR); Specific Gravity 1.026 (1.002-1.036)
[2024-01-02 20:39] LABS: Bacteria/HPF 1+ HPF (None Seen); CAUTI Indications for Culture Dysuria,urgency,freq; Clarity Hazy (Clear); RBC/HPF 0-3 HPF (0-3); Specific Gravity, Urine 1.026 (1.002-1.036); WBC/HPF 21-50 HPF (0-3)
[2024-01-02 20:40] LABS: Urine Culture Reflex Yes Yes
[2024-01-02 20:43] LABS: Amphetamine Not Detected (NotDetected); Barbiturates Screen Not Detected (NotDetected); Benzodiazepine Screen Not Detected (NotDetected); Cocaine Metabolite Screen Not Detected (NotDetected); Methadone Not Detected (NotDetected); Methamphetamine Not Detected (NotDetected); Opiate Screen Detected (NotDetected); Oxycodone Screen Not Detected (NotDetected); Phencyclidine (PCP) Not Detected (NotDetected); THC/Cannabinoid Screen Detected (NotDetected); Tricyclic Screen Not Detected (NotDetected)
[2024-01-02] MEDS ORDERED: cefTRIAXone (ROCEPHIN) 1 GM VIAL ONE (20:53)
[2024-01-02] MEDS ORDERED: Dextrose 50% Abboject 50 ML SYRINGE ONE (21:35)
[2024-01-02 22:18] LABS: Anion Gap 20 mmol/L (10-20); BUN (Urea Nitrogen) 26 mg/dL (7.0-18.7); Calc. Creatinine Clearance 0 mL/min (70-130); Calcium 8.5 mg/dL (7.8-10.44); Carbon Dioxide 15 mmol/L (22-29); Chloride 103 mmol/L (98-107); Estimated GFR 77; Glucose 177 mg/dL (70-105); Potassium 3.4 mmol/L (3.5-5.1); Sodium 135 mmol/L (136-145)
== END 2024-01-02 23:04 | disposition home or self-care (01) ==
LOC: MADERS 18:24
DX: E86.0 Dehydration (principal); N17.9 Acute kidney failure, unspecified; F12.20 Cannabis dependence, uncomplicated; E10.9 Type 1 diabetes mellitus without complications; N39.0 Urinary tract infection, site not specified
CPT/HCPCS: 36416; 71046; 80048; 80306; 81001; 81025; 82010; 82330; 82803; 83605; 83735; 85014; 85025; 87086; 96361; 96374; 96375; 96376; 36415-59; J0696; J1815; J2272; J2550; J7030; J7999

== ENCOUNTER 2024-01-10 20:51 | Emergency (ER) | payer SELFPAY ==
[2024-01-10] MEDS ORDERED: Ondansetron PF 4 MG/2 ML Vial ONE ×2 (21:10→22:05)
[2024-01-10] MEDS ORDERED: Sodium Chloride 0.9% 1,000 ML ONE (21:12)
[2024-01-10 21:27] LABS: #Basophils 0.1 thou/uL (0.0-0.2); #Lymphocytes 1.5 thou/uL (1.20-3.40); #Monocytes 0.5 thou/uL (0.11-0.59); #Neutrophils 10.7 thou/uL (1.40-6.50); %Basophils 0.6 % (0.0-1.0); %Eosinophils 0.1 % (0.0-10.0); %Monocytes 3.7 % (0.0-10.0); %Neutrophils 83.5 % (42.0-75.0); Hematocrit 42.3 % (36.0-47.0); Hemoglobin 14.3 g/dL (12.0-16.0); Mean Corpuscular HGB CONC 33.9 g/dL (32.0-36.0); Mean Corpuscular Hemoglobin 31.4 pg (27.0-31.0); Mean Corpuscular Volume 92.7 fl (78.0-98.0); Mean Platelet Volume 8.6 fL (7.4-10.4); Platelet Count 451 10x3/uL (130-400); RBC Distribution Width 11.5 % (11.5-14.5); Red Blood Cell (RBC) Count 4.56 mill/uL (4.20-5.40); White Blood Cell (WBC) Count 12.8 10x3/uL (4.8-10.8)
[2024-01-10] MEDS ORDERED: Sodium Chloride 0.9% 250 ML 250 ML ONE (21:33)
[2024-01-10] MEDS ORDERED: cefTRIAXone (ROCEPHIN) 1 GM VIAL ONE (21:33)
[2024-01-10] MEDS ORDERED: Sodium Chloride 0.9% 100 ML ONE (21:33)
[2024-01-10] MEDS ORDERED: Insulin Regular, Human 100 UNIT/ML 10 ML VIAL ONE (21:42)
[2024-01-10] MEDS ORDERED: INSULIN REGULAR IN 0.9 % NACL 100 ML ONE (21:42)
[2024-01-10 21:45] LABS: ALT (SGPT) 12 U/L (8-55); AST (SGOT) 14 U/L (5-34); Albumin 4.4 g/dL (3.5-5.0); Alkaline Phosphatase 165 U/L (40-110); Anion Gap 28 mmol/L (10-20); BUN (Urea Nitrogen) 20 mg/dL (7.0-18.7); Base Excess-Venous -5.9 mmol/L (-2.0 to 3.0); Bicarbonate (HCO3v) 16.7 mmol/L (22.0-28.0); Bilirubin, Total 0.5 mg/dL (0.2-1.2); Calc. Creatinine Clearance 0 mL/min (70-130); Calcium 10.2 mg/dL (7.8-10.44); Calcium, Ionized 1.08 mmol/L (1.15-1.33); Carbon Dioxide 14 mmol/L (22-29); Chloride 93 mmol/L (98-107); Chloride 97 mmol/L (98-107); Estimated GFR 52; Globulin 4.7 g/dL (2.4-3.5); Hemoglobin - Calc 16.1 g/dL (12.0-16.0); Lipase 9 U/L (8-78); Potassium 4.2 mmol/L (3.5-5.1); Potassium 4.3 mmol/L (3.5-5.1); Protein, Total 9.1 g/dL (6.0-8.3); Sodium 129 mmol/L (138-145); Sodium 131 mmol/L (136-145); T. Carbon Dioxide 17.5 mmol/L (22.0-28.0); Troponin I Less than 0.010 ng/mL (< 0.028)
[2024-01-10] MEDS ORDERED: Morphine 4 MG/ML VIAL ONE (21:53)
[2024-01-10 22:01] LABS: Critical Call Chemistry NUR.AID@2200; Glucose 466 mg/dL (70-105)
== END 2024-01-10 23:41 | disposition short-term general hospital (02) ==
LOC: MADERS 20:51
DX: E10.10 Type 1 diabetes mellitus with ketoacidosis without coma (principal); I10 Essential (primary) hypertension
CPT/HCPCS: 36416; 74176; 80053; 82330; 82803; 83605; 83690; 84484; 85025; 87040; 93005; 96365; 96366; 96367; 96375; 96376; J0696; J1815; J2272; J2405; J7030; J7050